=== PATIENT | male | born 1995 | race Caucasian/White ===

== ENCOUNTER 2018-11-09 04:39 | Emergency (ER) | payer MEDICAID, SELFPAY ==
[2018-11-09] VITALS (29 sets, daily range): BP systolic 114–151; BP diastolic 57–111; PULSE 52–106; RESP 5–32; TEMP 37.3; O2SAT 89–100
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
[2018-11-09 05:45] LABS: ALT 38 U/L (12-78); AST 33 U/L (15-37); Albumin 4.3 g/dL (3.4-5.0); Alkaline Phosphatase 100 U/L (46-116); Anion Gap 18.2 mmol/L (3-11); BUN 19 mg/dL (7-18); Bilirubin, Total 0.7 mg/dL (0.2-1.0); CO2 19.8 mmol/L (21.0-32.0); Calcium 9.3 mg/dL (8.5-10.1); Chloride 101 mmol/L (98-107); Glucose 126 mg/dL (70-100); Sodium 139 mmol/L (136-145)
[2018-11-09 05:46] LABS: Abs Immature Grans 0.02 k/cumm (0.0-0.09); Absolute Basophil Count 0.04 k/cumm (0.0-0.2); Absolute Eosinophil Count 0.13 k/cumm (0.0-0.7); Absolute Lymphocyte Count 3.13 k/cumm (1.2-3.4); Absolute Monocyte Count 1.02 k/cumm (0.11-0.7); Basophils % 0.4; Eosinophils % 1.2; HCT 42.5 % (40.0-50.0); HGB 15.8 g/dL (13.5-17.5); Immature Grans % 0.2; Lymphocytes % 28.2; Mean Corpuscular Hemoglobin 29.5 pg (27.0-33.0); Mean Corpuscular Volume 79.3 fL (80-95); Mean Platelet Volume 9.3 fL (8.0-11.0); Monocytes % 9.2; Neutrophils % 60.8; Platelet Count 271 x1000/uL (130-400); RBC 5.36 m/cumm (4.50-6.00); RBC Distribution Width 12.5 % (11.8-14.1); White Blood Cell Count 11.11 k/cumm (4.4-10.8)
[2018-11-09 05:48] LABS: Absolute Neutrophil Count 6.75 k/cumm (1.2-6.7)
[2018-11-09 05:51] LABS: Potassium 2.5 mmol/L (3.5-5.1)
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
[2018-11-09 06:16] LABS: Troponin I < 0.05 ng/mL (0.00-0.06)
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
[2018-11-09] MEDS: Potassium Chloride 20 MEQ TABCR 40 MEQ PO (06:31)
[2018-11-09] MEDS: Normal Saline 1,000 ML 1000 ML IV (06:32)
[2018-11-09] MEDS: POTASSIUM CHLORIDE 20 MEQ/100 ML BAG 50 MEQ IVPB (06:33)
[2018-11-09] MEDS: Ketorolac 30 MG/ML VIAL IVP (06:42)
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
[2018-11-09] MEDS: Acetaminophen 500 MG TAB 1000 MG PO (07:55)
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
[2018-11-09 09:14] LABS: Anion Gap 11.2 mmol/L (3-11); BUN 15 mg/dL (7-18); CO2 23.8 mmol/L (21.0-32.0); Calcium 8.5 mg/dL (8.5-10.1); Chloride 105 mmol/L (98-107); Glucose 110 mg/dL (70-100); Sodium 140 mmol/L (136-145)
[2018-11-09 09:16] LABS: Potassium 2.9 mmol/L (3.5-5.1)
== END 2018-11-09 09:30 | disposition home or self-care (01) ==
PROVIDERS: Physician Assistant; Emergency Provider Emergency Medicine; PCP Nurse Practitioner Family
DX: S16.1XXA Strain of muscle, fascia and tendon at neck level, initial encounter (principal); E87.6 Hypokalemia; M54.5 Low back pain; M25.551 Pain in right hip; M25.552 Pain in left hip; S80.02XA Contusion of left knee, initial encounter; V40.6XXA Car passenger injured in collision with pedestrian or animal in traffic accident, initial encounter
CPT/HCPCS: 36415; 73552; 73562; 74177; 80048; 80053; 93005; 96361; 96365; 96366; 96375; 99285; L0172; 70450; 71260; 72125; 84484; 85025; 93010; 99284; J1885; J3480

== ENCOUNTER 2019-01-22 10:12 | Emergency (ER) | payer MEDICAID, SELFPAY ==
[2019-01-22 10:23] VITALS: BP 153/96; PULSE 76; RESP 16; TEMP 36.1; O2SAT 97
--- NOTE | 2019-01-22 10:39 | W.ED.GENAD ---
Discharge Plan Disposition Patient Disposition: HOME Condition: Stable Discharge Details Chief Complaint: Orthopedic Clinical Impression: Left shoulder strain Primary Care Provider: Marcell Harrington ED Provider: Drake Kamara Home Meds and New Rx's Prescriptions: No Action No Known Home Meds RF: 0 Discharge Instructions Instructions: Shoulder Sprain (ED) Additional Instructions: if not better in a week see your primary care provider if you have pain take 1000mg tylenol and 600mg ibuprofen every 6 hours if you develop fevers, or redness that spreads down the arm return to the emergency department Stand Alone Forms: Work Release Medical Decision Making 23 yo male who denies chronic medical problems comes in with left shoulder pain. He states it startedon Saturday after doing a lot of heavy lifting at work. Denies falls or trauma, no fevers, redness, swelling. HAs full rom of the left shoulder with pain to palpation to the posterior shoulder and some mild weakness with abduction. Normal peripheral pulses and sensation without arm swelling. HAs no findings on exam to suggest septic joint and given lack of trauma do not feel xrays indicated and exam is not consistent with fracture/dislocation. Suspect strain, advised prn otc meds and f/u with pcp, return precautions also given Differential Diagnosis Differential Diagnosis: strain, sprain, rotator cuff injury HPI General Mode of arrival: ambulatory. Date/Time Provider Initiated Documentation: 01/22/19 10:39. Limitations to Documentation: no limitations. Information obtained by: patient. History of Present Illness 23 year old M presents to the emergency department with the chief complaint of left shoulder pain, described as moderate, Quality is described as aching, and is localized to the left and upper extremity. Patient reports no radiation. Patient started experiencing this day(s) (2) and it has been constant. Rest improves symptom(s), Movement worsens symptoms . Patient did receive the following treatments prior to arrival, none Related Data Home Medications Medication Instructions Recorded Confirmed Unknown [No Known Home Meds] 01/22/19 01/22/19 Allergies Allergy/AdvReac Type Severity Reaction Status Date / Time No Known Allergies Allergy Unverified 01/22/19 10:23 General Stated Complaint: Orthopedic JOSE: 4 Review of Systems Review of Systems ROS Unobtainable: All systems reviewed & are unremarkable except as noted in HPI and below Constitutional Constitutional: Denies chills and Denies fever(s) Cardiovascular Cardiovascular: Denies chest pain and Denies dyspnea Respiratory Respiratory: Denies dyspnea Gastrointestinal Gastrointestinal: Denies abdominal pain, Denies nausea and Denies vomiting Musculoskeletal Musculoskeletal: Denies joint swelling Integumentary/Breasts Skin/Breast: Denies rash [facility] Social History Smoking/Tobacco Use Status: Current every day Tobacco Type: cigarettes Tobacco: How many years used: 10 Alcohol Intake: current Alcohol Intake frequency: holidays/special occasions only Alcohol type: beer and hard liquor Drug use: Daily Substance use type: marijuana Do you feel safe at home: Yes Do you feel safe in your relationship?: Yes Exam Const General: no acute distress Orientation: alert HENMT Head: normal to inspection Ears: external ears normal General nose exam: external nose normal Mouth: moist mucous membranes Eyes General: appearance normal, both eyes and all related structures Neck Neck: normal visual inspection Resp Effort & Inspection: normal respiratory effort and able to speak in complete sentences Cardio Rate: regular rate Skin General skin exam: no rashes or lesions noted Neuro General: alert and oriented x3 Extrem General: normal to inspection Psych Mental Status: mental status grossly normal Course Vital Signs Vital signs: Vital Signs Temperature 36.1 C L 01/22/19 10:23 Pulse 76 01/22/19 10:23 Respiratory Rate 16 01/22/19 10:23 Blood Pressure 153/96 H 01/22/19 10:23 Pulse Oximetry 97 01/22/19 10:23 Temperature 36.1 C L 01/22/19 10:23 Temperature Source Skin 01/22/19 10:23 Pulse 76 01/22/19 10:23 Respiratory Rate 16 01/22/19 10:23 Respiratory Effort Non-Labored 01/22/19 10:25 Blood Pressure 153/96 H 01/22/19 10:23 Blood Pressure Position Sitting 01/22/19 10:23 Pulse Oximetry 97 01/22/19 10:23 Oxygen Delivery Method Room Air 01/22/19 10:23 Oxygen Flow Rate 0 01/22/19 10:23 Pain Level 6 01/22/19 10:26
== END 2019-01-22 10:45 | disposition home or self-care (01) ==
PROVIDERS: Emergency Provider Emergency Medicine; PCP Nurse Practitioner Family
DX: S46.912A Strain of unspecified muscle, fascia and tendon at shoulder and upper arm level, left arm, initial encounter (principal); X50.0XXA Overexertion from strenuous movement or load, initial encounter; Y99.0 Civilian activity done for income or pay
CPT/HCPCS: 99282